=== PATIENT | female | born 1995 | race African-American/Black ===

== ENCOUNTER 2019-08-23 09:35 | Emergency (ER) | payer MEDICAID, SELFPAY ==
[2019-08-23 09:58] VITALS: BP 114/70; PULSE 90; RESP 20; TEMP 37.1; O2SAT 100
--- NOTE | 2019-08-23 10:20 | ED.NAVMDI ---
HPI - Nausea/Vomiting/Diarrhea General Chief complaint: Nausea/Vomiting/Diarrhea Stated complaint: nausea diarrhea and aches Time Seen by Provider: 08/23/19 10:10 Source: patient Mode of arrival: ambulatory Limitations: no limitations History of Present Illness HPI Narrative: Cyndee Heaton is a 24 yo female with no PMH who comes to express care with complaints of nausea vomiting diarrhea for multiple days, sore throat, fever up till yesterday, no abdominal pain. Cough is also disappeared, has history of strep Related Data Allergies Allergy/AdvReac Type Severity Reaction Status Date / Time No Known Allergies Allergy Verified 08/23/19 10:16 Review of Systems Review of Systems: Narrative: CONSTITUTIONAL: Denies fever, chills, sweats. EYES: Denies visual changes, redness, discharge. ENT: Denies rhinorrhea, congestion, sore throat, otalgia. CARDIOVASCULAR: Denies chest pain, palpitations, edema. RESPIRATORY: Denies dyspnea, wheezing, cough GASTROINTESTINAL: Denies abdominal pain, has nausea, vomiting, diarrhea. GENITOURINARY: Denies dysuria, hematuria, abnormal discharge SKIN: Denies rash or itching. NEUROLOGIC: Denies numbness, or focal weakness. PSYCHIATRIC: Denies anxiety or depression. [facility] Family History Family History Other No active medical problems Social History Social History (Updated 08/23/19 @ 10:22 by Nneka Wise CNP) Smoking status: Never smoker Alcohol intake: never Comments At time of signature, I agree with nursing past medical, surgical, social and family history. There is no relevant family history pertinent to the presenting complaint. Exam Narrative: Exam Narrative: GENERAL: This is a well-nourished, well-developed patient, in no apparent distress. HEAD: normocephalic, atraumatic. EYES: PERRL. Sclera clear/white. Vision is grossly intact. EARS: External ears normal, auditory canals clear and without drainage, TMs normal without perforation. Hearing grossly intact. NOSE: External nose normal with no obvious nasal discharge, nares without redness, no rhinorrhea. THROAT: Mucous membranes moist, posterior pharynx erythema NECK: Neck supple, non-tender CARDIOVASCULAR: Regular rate and rhythm without murmurs, gallops, or rubs. RESPIRATORY: Clear to auscultation. Breath sounds equal bilaterally. No wheezes, rales, or rhonchi. GASTROINTESTINAL: Abdomen soft, non-tender, nondistended. Bowel sounds are active. SKIN: warm, intact with no suspicious lesions or rash, good texture and turgor. NEURO: awake, alert, and oriented to person, place and time. There were no obvious focal neurologic abnormalities. Steady gait EXTREMITIES: Normal range of motion. No edema. BACK: Nontender without deformity or crepitance. No flank tenderness. Course Course Emergency Course: Strep Flu Vital Signs Vital signs: Vital Signs Temperature 98.8 F 08/23/19 09:58 Pulse Rate 90 08/23/19 09:58 Respiratory Rate 20 08/23/19 09:58 Blood Pressure 114/70 08/23/19 09:58 Pulse Oximetry 100 08/23/19 09:58 Temperature 98.8 F 08/23/19 09:58 Pulse Rate 90 08/23/19 09:58 Respiratory Rate 20 08/23/19 09:58 Blood Pressure 114/70 08/23/19 09:58 Pulse Oximetry 100 08/23/19 09:58 MDM - Nausea/Vomiting/Diarrhea Differential Diagnosis Differential diagnosis: Likely traveler's diarrhea, gastroenteritis, dehydration and other Lab Data Labs: Influenza A Screen Negative Reference Range: Negative Influenza B Screen Negative Reference Range: Negative Strep Screen Positive Group A Strep *(Reference Range: Negative)* Discharge Plan Discharge Clinical Impression: Strep pharyngitis Patient Disposition: Home, Self-Care Condition: Stable Instructions: Antibiotic Form Prescriptions: New penicillin V potassium 500 mg tablet 500 mg PO Q12H
== END 2019-08-23 10:44 | disposition home or self-care (01) ==
PROVIDERS: Emergency Provider Nurse Practitioner
DX: J02.0 Streptococcal pharyngitis (principal)
CPT/HCPCS: 87804; 87880; 99203; G0463

== ENCOUNTER 2019-11-12 08:28 | Emergency (ER) | payer OTHER, SELFPAY ==
[2019-11-12 08:40] VITALS: BP 111/65; PULSE 80; RESP 18; TEMP 37; O2SAT 100
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
== END 2019-11-12 09:10 | disposition home or self-care (01) ==
PROVIDERS: Emergency Provider Nurse Practitioner Family
DX: S16.1XXA Strain of muscle, fascia and tendon at neck level, initial encounter (principal); M54.6 Pain in thoracic spine; Y04.2XXA Assault by strike against or bumped into by another person, initial encounter; R51 Headache
CPT/HCPCS: 99213; G0463